=== PATIENT | male | born 1985 | race Caucasian/White ===

== ENCOUNTER 2017-05-07 19:26 | Emergency (ER) | payer SELFPAY ==
[~2017-05-07] VITALS: Ht 172.7 cm; Wt 80.5 kg
[~2017-05-07 19:26] MED LIST: AMO500 PO; IBUP800T25 PO
[2017-05-07 19:37] VITALS: Ht 172.7 cm; Wt 80.5 kg
--- NOTE | 2017-05-07 21:15 | ERD ---
ER Documentation Chief Complaint Date/Time DATE: 05/07/17 TIME: 21:14 Chief Complaint left ankle pain while playing basketball 3 days ago HPI 32-year-old male who presented emergency department for a left ankle pain and swelling for 3 days. 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 Stated that he heard popping sound. Denies headache, loss of consciousness, dizziness, blurry vision, changes in vision, photophobia, facial pain, ear pain, throat pain, difficulty swallowing, neck pain, shoulder pain, chest pain, cough, hemoptysis, abdominal pain, back pain, loss of appetite, nausea, vomiting, hematochezia, diarrhea, constipation, urinary symptoms, bladder and bowel incontinences, numbness or tingling sensation, recent travel, recent exposure to illness, recent antibiotic use in the last 3 months, fever, chills. Allergy: NKDA. PMH: Denies. Medications: Denies. Surgery: Appendectomy. Family history: Denies. Primary Social History: Not working at this time. Smokes medical marijuana. Denies smoking cigarettes, use of alcoholic beverages, use of illegal drugs. ROS All systems reviewed and are negative except as per history of present illness. Medications Home Meds Active Scripts Ibuprofen* (Motrin*) 800 Mg Tab, 800 MG PO Q8 Y for PAIN AND OR ELEVATED TEMP, # 30 TAB Prov:PETER STEPHENS 05/07/17 Ibuprofen* (Motrin*) 800 Mg Tab, 800 MG PO Q6, #30 TAB Prov:MOSHE RIVERA PA-C 10/31/16 Amoxicillin* (Amoxicillin*) 500 Mg Cap, 500 MG PO BID for 7 Days, CAP Prov:MOSHE RIVERA PA-C 10/31/16 Allergies Allergies: Coded Allergies: No Known Allergy (Unverified , 10/31/16) PMhx/Soc History of Surgery: Yes (appendectomy) Hx Alcohol Use: No Hx Substance Use: No Hx Tobacco Use: No Physical Exam Vitals Physical Exam CONSTITUTIONAL: Well-appearing; well-nourished; in no apparent distress. HEAD: Normocephalic; atraumatic. EYES: Conjunctiva clear, sclera non-icteric, EOM intact. PERRL Ears: Hearing intact. EACs clear, TMs non-bulging, non-inflamed, translucent & mobile, ossicles normal appearance, No obstructions, no erythema, no discharges Nose: No obstructions. No polyps. No external lesions. Mucosa non-inflamed. No external lesions, septum and turbinates normal. No rhinorrhea. No discharges. Frontal sinus is non-tender to palpation. Maxillary sinus is non-tender to palpation. MOUTH: Moist mucous membranes, no lesion, no obstructions, no vesicles, no thrush, patent airway Throat: Uvula in midline. Right tonsil is +1 with no erythema, no exudate. Left tonsil is +1 with no erythema, no exudate. Tolerating secretions well. Good gag reflex. Patent airway. Neck: Supple, without lesions, bruits, or adenopathy. No mass. Thyroid non- enlarged and non-tender to palpation. CHEST: Symmetrical chest. Respirations even and not labored. No retractions noted. CARDIOVASCULAR: Normal S1, S2. RRR. No murmurs, gallops. RESPIRATORY: Normal chest excursion with respiration; breath sounds clear and equal bilaterally; no wheezes, rhonchi, or rales. Breathing even and unlabored. Speaking in clear, full, and complete sentences w/ ease. ABDOMEN: Normal bowel sounds normal. Soft, round, non-distended, non-guarding, no tenderness, no rebound, no organomegaly, no masses, no pulsating abdominal mass. No hernia. No peritoneal signs. : No CVA tenderness. BACK: Symmetrical shoulder. Spine is midline without deformity, tenderness. No evidence of trauma or deformity. PELVIS: Stable pelvis. No evidence of trauma or deformity. MUSCULOSKELETAL: Normal gait and station. No misalignment, asymmetry, crepitation, defects, tenderness, masses, effusions, decreased range of motion, instability, atrophy or abnormal strength or tone in the head, neck, spine, ribs , pelvis or extremities except left ankle has swelling/tenderness to medial area and has limited range of motion. Left pedal pulse is within normal limits and circulation is intact. Left knee is unremarkable. Bilateral hips and right lower extremity is unremarkable. No neurovascular deficits. No calf tenderness. NEUROVASCULAR: Distal pulses are present. Pedal pulse are present, equal, and normal. Capillary refills are < 2 seconds. NEUROLOGIC: Alert and oriented x4. Speaks full and clear sentences. Cranial Nerves II-XII normal. Sensation to pain, touch, and proprioception normal. Grossly unremarkable. No neurologic deficits. Romberg test is negative. PSYCHOLOGICAL: The patients mood and manner are appropriate. No hallucinations , delusions. Not SI. Not HI. Has the capacity to decide for self SKIN: Normal for age and ethnicity; warm; dry; good turgor; no apparent lesions or exudates. No rashes, hives, discoloration. Intact. Results 24 hrs Current Medications Medications (Trade) Dose Ordered Sig/Ethan Route PRN Reason Start Time Stop Time Status Last Admin Dose Admin Acetaminophen/ Hydrocodone Bitart ([place] (5/325)) 1 tab ONCE ONCE PO 05/07/17 21:30 05/07/17 21:31 DC 05/07/17 21:37 Procedures/MDM Examination: Please see physical examination. Disease process, medical treatment was explained to the patient and family member. They verbalized understanding and agreed with the diagnostic tests, medical treatment, and follow-up care. Radiology: X-ray of the left ankle Impression: Left ankle sprain. Treatment: [place]. Reyes wrap. Provided with crutch training and crutches. Left ankle sprain. Re-evaluation: Denies headache, dizziness, blurry vision, neck pain, shoulder pain, chest pain, back pain, abdominal pain, nausea. No episode of emesis in the emergency department. Good and full range of motion of neck and spine. Lateral upper extremities unremarkable. No tenderness and swelling to C-spine/T -spine/L-spine. No neurovascular deficit prior to and after the application of Reyes wrap. No neurological deficits. No neurovascular deficits. Patient stated that he feels much better at this time. Consultation: None. Differential diagnosis: Fracture versus dislocation versus contusion versus sprain Medical decision makin-year-old male who presented emergency department for a left ankle pain and swelling for 3 days. 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 Stated that he heard popping sound. Patient's complaint, patient's history about his complaint, my physical findings, my diagnostic test results, my reevaluation are consistent with final diagnosis of left ankle sprain. Medications prescribed are the following: Motrin. Patient and family member are made aware of the side effects and adverse reactions of the medications prescribed. Instructed on when to seek emergent and medical attention in case allergic/anaphylactic reactions or severe side effects and or adverse reactions to medications. Patient and family member verbalized understanding. Patient instructed Instructed to follow-up with his PCP in 24-48 hours. PCP to refer patient to an orthopedic doctor if symptoms get worse. Instructed to Call 911 for chest pain, shortness of breath. Advised to come back here in ED as soon as possible for severity of symptoms which includes but not limited to: any new symptoms; shortness of breath/difficulty of breathing; cardiovascular changes; severe gastrointestinal symptoms; signs and symptoms of bleeding and or infection; signs of compartment syndrome/neurovascular changes; neurological changes/deficits. Patient and family member verbalized understanding. Upon discharge, patient is alert and oriented x 4, speaks full and clear sentences, denies pain, has no neurological deficits, has no neurovascular deficits, difficulty of breathing. Breathing even and unlabored. Lung sounds are clear to auscultation. Not in distress. Appears comfortable. Ambulatory with steady gait. Appears satisfied with care provided here in ED. Departure Diagnosis: Primary Impression: Ankle injury Additional Impression: Sprained ankle Condition: Stable Additional Instructions: Instructed to follow-up with his PCP in 24-48 hours. PCP to refer patient to an orthopedic doctor if symptoms get worse. Instructed to Call 911 for chest pain, shortness of breath. Advised to come back here in ED as soon as possible for severity of symptoms which includes but not limited to: any new symptoms; shortness of breath/difficulty of breathing; cardiovascular changes; severe gastrointestinal symptoms; signs and symptoms of bleeding and or infection; signs of compartment syndrome/neurovascular changes; neurological changes/deficits. Patient and family member verbalized understanding. PETER STEPHESN May 07, 2017 21:15 Patient and family member verbalized understanding. PETER STEPHENS May 07, 2017 21:15
[2017-05-07] MEDS ORDERED: HYDROCODONE/APAP (5/325) TAB PO ONE (21:30)
--- NOTE | 2017-05-07 22:47 | RADRPT ---
PROCEDURE: XR Left Ankle CLINICAL INDICATION: Injury, pain possible fracture TECHNIQUE: Standard 3 view radiographs were submitted. COMPARISON: None FINDINGS: Osseous structures: Well mineralized and intact with no fracture or destructive process identified. Joint spaces: The ankle mortise is well maintained. Soft tissues: There is soft tissue swelling most evident about the lateral malleolus suspicious for a sprain. IMPRESSION: Left ankle sprain. Physician Lynsey Date Time Electronically viewed and signed by Oscar Trinh Physician on 05/07/2017 22:46 /
[2017-05-07] MEDS ORDERED: IBUP800T25 PO (23:14)
== END 2017-05-07 23:28 | disposition home or self-care (01) ==
LOC: FTE 19:26
DX: S93.402A Sprain of unspecified ligament of left ankle, initial encounter (principal); X50.9XXA Other and unspecified overexertion or strenuous movements or postures, initial encounter; Y92.9 Unspecified place or not applicable
CPT/HCPCS: 73610